=== PATIENT | male | born 1990 | race Caucasian/White ===

== ENCOUNTER 2019-10-20 19:13 | Emergency (ER) | payer MEDICAID ==
[~2019-10-20] VITALS: Ht 182.9 cm; Wt 81.8 kg
[2019-10-20 19:14] VITALS: BP 133/84
--- NOTE | 2019-10-20 19:21 | NUR ---
Spoke to Derick Loza of patient and condition. No CT orders for now.
[2019-10-20] MEDS ORDERED: TETanus/Pertussis (Acell)/Diphther VAC/PF (Tdap-Adult) 0.5ml syringe IMVAC ONE (19:40)
== END 2019-10-20 20:27 | disposition home or self-care (01) ==
LOC: ER 19:14
DX: S01.01XA Laceration without foreign body of scalp, initial encounter (principal); R42 Dizziness and giddiness; R40.1 Stupor; W31.89XA Contact with other specified machinery, initial encounter; Y93.89 Activity, other specified; Y92.89 Other specified places as the place of occurrence of the external cause; Y99.0 Civilian activity done for income or pay
CPT/HCPCS: 12002; 99282

== ENCOUNTER 2019-10-27 11:07 | Emergency (ER) | payer MEDICAID, OTHER ==
[~2019-10-27] VITALS: Ht 182.9 cm; Wt 78.6 kg
[2019-10-27 12:14] VITALS: BP 109/68
== END 2019-10-27 12:15 | disposition home or self-care (01) ==
LOC: ER 11:08
DX: S01.01XD Laceration without foreign body of scalp, subsequent encounter (principal); X58.XXXD Exposure to other specified factors, subsequent encounter
CPT/HCPCS: 99281

== ENCOUNTER 2021-03-06 09:06 | Emergency (ER) | payer OTHER ==
[~2021-03-06] VITALS: Ht 182.9 cm; Wt 78.2 kg
[2021-03-06 09:09] VITALS: BP 112/77
--- NOTE | 2021-03-06 09:27 | NUR ---
pt. hurt himself on the job. after checking in and being triaged pt. called his boss and was told that he had to be seen at one of the urgent cares the his insurance was contracted for... that he could not be seen in an ER
== END 2021-03-06 09:35 | disposition left against medical advice (07) ==
LOC: ER 09:07
DX: R10.9 Unspecified abdominal pain (principal); Z53.21 Procedure and treatment not carried out due to patient leaving prior to being seen by health care provider